=== PATIENT | female | born 1955 | race Asian ===

== ENCOUNTER 2016-10-21 17:27 | Emergency (ER) | payer OTHER ==
[~2016-10-21] VITALS: Ht 160 cm; Wt 51.0 kg
[~2016-10-21 17:27] MED LIST: DENIES
[2016-10-21 17:33] VITALS: Ht 160 cm; Wt 51.0 kg
[2016-10-21] MEDS ORDERED: CEPH-443 PO (19:21)
--- NOTE | 2016-10-21 19:24 | ERD ---
ER Documentation Chief Complaint Date/Time DATE: 10/21/16 TIME: 19:22 Chief Complaint BLOOD IN URINE 2X TODAY HPI 61-year-old female who presents to the emergency room with 2 days of symptoms that include dysuria urgency and frequency and now some small blood in her urine. She denies any fevers chills petechia or purpura, she denies any flank pain or back pain. She describes similar symptoms to a urinary tract infection in the past. ROS All systems reviewed and are negative except as per history of present illness. Medications Home Meds Active Scripts Cephalexin* (Keflex*) 500 Mg Capsule, 500 MG PO BID for 7 Days, CAP Prov:HARJINDER VELAZQUEZ MD 10/21/16 Reported Medications [Denies] No Conflict Check 09/20/09 Allergies Allergies: Coded Allergies: No Known Allergy (Unverified , 10/21/16) PMhx/Soc History of Surgery: Yes (LEFT BREAST BIOPSY) Anesthesia Reaction: No Hx Neurological Disorder: No Hx Respiratory Disorders: No Hx Cardiac Disorders: No Hx Psychiatric Problems: No Hx Miscellaneous Medical Probl: No Hx Alcohol Use: No Hx Substance Use: No Hx Tobacco Use: No FmHx Family History: No diabetes Physical Exam Vitals Vital Signs Date Time Temp Pulse Resp B/P Pulse Ox O2 Delivery O2 Flow Rate FiO2 10/21/16 17:33 97.1 90 16 114/70 97 Physical Exam General: Well developed, well nourished, no acute distress Head: Normocephalic, atraumatic. Eyes: EOM intact ENT: Moist mucous membranes Neck: Full ROM Respiratory: No respiratory distress Cardiovascular: Good capillary refil Abdominal: Nondistended, no focal tenderness no rebound or guarding : Deferred MSK: No edema, no unilateral swelling, 5/5 strength Neurologic: Alert and oriented, moving all extremities, normal speech, steady gait Skin: No rash Psych: Normal mood Procedures/MDM Clinical exam and history very consistent with hemorrhagic cystitis, urine dip to be obtained. The patient will be empirically treated with Keflex. The patient was informed of no resolution she needs to follow-up with urologist for cystoscopy given her age to rule out bladder malignancy. Patient has no evidence of coagulopathy laboratory testing other than urine dip is not necessary. We discussed follow up with the patient's primary care doctor within 24 to 48 hours as needed. We also discussed return to the emergency room for worsening symptoms or worsening condition. Outpatient referral: [None required] Discharge Medications: Keflex Departure Diagnosis: Primary Impression: Hemorrhagic cystitis Condition: Stable Patient Instructions: Understanding Urinary Tract Infections (UTIs) Referrals: ZENIA YUAN MD, JENNIFER MD [facility] YOU HAVE RECEIVED A MEDICAL SCREENING EXAM AND THE RESULTS INDICATE THAT YOU DO NOT HAVE A CONDITION THAT REQUIRES URGENT TREATMENT IN THE EMERGENCY DEPARTMENT. FURTHER EVALUATION AND TREATMENT OF YOUR CONDITION CAN WAIT UNTIL YOU ARE SEEN IN YOUR DOCTORS OFFICE WITHIN THE NEXT 1-2 DAYS. IT IS YOUR RESPONSIBILITY TO MAKE AN APPOINTMENT FOR FOLOW-UP CARE. IF YOU HAVE A PRIMARY DOCTOR --you should call your primary doctor and schedule an appointment IF YOU DO NOT HAVE A PRIMARY DOCTOR YOU CAN CALL OUR PHYSICIAN REFERRAL HOTLINE AT IF YOU CAN NOT AFFORD TO SEE A PHYSICIAN YOU CAN CHOSE FROM THE FOLLOWING [facility] [address] [facility]. [facility] [address] [facility]. [facility] [address] [facility] [facility] [address] [facility] [facility] [address] [facility]. [facility] [address] [facility]. [place] YOU HAVE RECEIVED A MEDICAL SCREENING EXAM AND THE RESULTS INDICATE THAT YOU DO NOT HAVE A CONDITION THAT REQUIRES URGENT TREATMENT IN THE EMERGENCY DEPARTMENT. FURTHER EVALUATION AND TREATMENT OF YOUR CONDITION CAN WAIT UNTIL YOU ARE SEEN IN YOUR DOCTORS OFFICE WITHIN THE NEXT 1-2 DAYS. IT IS YOUR RESPONSIBILITY TO MAKE AN APPOINTMENT FOR FOLOW-UP CARE. IF YOU HAVE A PRIMARY DOCTOR --you should call your primary doctor and schedule and appointment IF YOU DO NOT HAVE A PRIMARY DOCTOR YOU CAN CALL OUR PHYSICIAN REFERRAL HOTLINE AT . IF YOU CAN NOT AFFORD TO SEE A PHYSICIAN YOU CAN CHOSE FROM THE FOLLOWING [facility] INSTITUTIONS: [facility] [address] [place] [address] [facility] [address] [place] [address] [facility] [address] [place] [address] Additional Instructions: Call your primary care doctor TOMORROW for an appointment during the next 1 WEEK.Tell the city secretary that you were referred from this facility.See the doctor sooner or return here if your condition worsens before your appointment time. If you still have blood in the urine after treatment you need to see a urologist for cystoscopy. HARJINDER VELAZQUEZ MD Oct 21, 2016 19:24
[2016-10-21 19:26] LABS: URINE BLOOD (Dip) POC 2+ (NEGATIVE)
== END 2016-10-21 19:43 | disposition home or self-care (01) ==
LOC: FTE 17:27
DX: N30.90 Cystitis, unspecified without hematuria (principal)
CPT/HCPCS: 81003; Z7502; 99283